=== PATIENT | male | born 1985 | race Native Hawaiian/Other Pacific Islander ===

== ENCOUNTER → 2017-06-04 22:34 | Outpatient (CLI) | payer OTHER | END | disposition home or self-care (01) | LOC: AMB 22:34 | DX: Z04.1 Encounter for examination and observation following transport accident (principal) ==

== ENCOUNTER 2018-02-06 13:25 | Outpatient (CLI) | payer OTHER | END 2018-02-06 21:21 | disposition home or self-care (01) | LOC: RAD 13:25 | DX: M54.89 Other dorsalgia (principal); F41.8 Other specified anxiety disorders ==

== ENCOUNTER 2018-03-18 20:25 | Emergency (ER) | payer OTHER ==
[~2018-03-18] VITALS: Ht 182.9 cm; Wt 72.6 kg
[2018-03-18 21:45] VITALS: BP 128/78; TEMP 98
== END 2018-03-18 21:45 | disposition home or self-care (01) ==
LOC: ED 20:25
PROC: 0H9LXZZ Drainage of Left Lower Leg Skin, External Approach (ICD-10-PCS; principal; 2018-03-18)
DX: L02.416 Cutaneous abscess of left lower limb (principal)
CPT/HCPCS: 87070; 87077; 87185; 87186; 87205; 99282

== ENCOUNTER 2018-03-19 19:27 | Emergency (ER) | payer OTHER ==
[~2018-03-19] VITALS: Ht 182.9 cm; Wt 72.6 kg
[2018-03-19 20:15] VITALS: BP 118/69; TEMP 98.6
== END 2018-03-19 20:15 | disposition home or self-care (01) ==
LOC: ED 19:27
DX: L03.116 Cellulitis of left lower limb (principal); Z98.890 Other specified postprocedural states
CPT/HCPCS: 99282